=== PATIENT | female | born 1950 | race Caucasian/White ===

== ENCOUNTER 2022-04-08 06:30 | Day surgery (SDC) | payer MEDICAID ==
[~2022-04-08] VITALS: Ht 160 cm; Wt 81.6 kg
[2022-04-08] MEDS ORDERED: MIDAZOLAM HCL 5 MG/5 ML VIAL ONE (08:55)
[2022-04-08] MEDS ORDERED: MEPERIDINE 100 MG INJ. 100 MG/ML VIAL ONE (08:55)
[2022-04-08 10:37] VITALS: BP_SYST 142
== END 2022-04-08 10:20 | disposition home or self-care (01) ==
LOC: SDS 06:30 → SMU 06:33 → SDS 10:20
PROVIDERS: ATTEND Internal Medicine Gastroenterology
DX: K21.00 Gastro-esophageal reflux disease with esophagitis, without bleeding (principal); K29.50 Unspecified chronic gastritis without bleeding; K29.00 Acute gastritis without bleeding; K44.9 Diaphragmatic hernia without obstruction or gangrene; K31.7 Polyp of stomach and duodenum; Z80.0 Family history of malignant neoplasm of digestive organs; Z79.899 Other long term (current) drug therapy; Z20.822 Contact with and (suspected) exposure to COVID-19
CPT/HCPCS: 43239; 87426; 87081; 36415; 88305; 88312; 88313; G0378; J2250; J2175